=== PATIENT | male | born 1965 | race Two or more races ===

== ENCOUNTER 2018-11-09 15:00 | Emergency (ER) | payer SELFPAY ==
[~2018-11-09] VITALS: Ht 177.8 cm; Wt 59.0 kg
--- NOTE | 2018-11-09 15:17 | NUR ---
PT TO ROOM AT THIS TIME
--- NOTE | 2018-11-09 15:29 | NUR ---
53 Y/O MALE PRESENTS TO ED WITH C/O GROWTH ON RIGHT TESTICLE. PER PT "I WAS CHECKING MYSELF AND NOTICED A GROWTH ON MY RIGHT TESTICLE. I TRIED TO SQUEEZE IT AND EVER SINCE THEN IT HAS BEEN PAINFUL." NO ACUTE DISTRESS NOTED. NO C/O TRAUMA, DYSURIA OR COMPLICATIONS WITH URINATION. NO C/O N/V/D, SYNCOPE, CP, SOB. PT PLACED ON CONT PULSE OX,NIBP.
--- NOTE | 2018-11-09 15:40 | NUR ---
pt being taken to imaging.
--- NOTE | 2018-11-09 15:51 | NUR ---
PT BACK FROM IMAGING.
--- NOTE | 2018-11-09 15:56 | NUR ---
pt ambulatory with steady gait to bathroom.
--- NOTE | 2018-11-09 16:07 | NUR ---
PT PROVIDED UA. PT REATTACHED TO ALL MONITORS. NO ACUTE DISTRESS NOTED. NO NEEDS REQUESTED AT THIS TIME.
[2018-11-09 16:15] LABS: MICROSCOPIC NOT IND
[2018-11-09 16:23] LABS: CULTURE INDICATED? NO
[2018-11-09 16:55] VITALS: BP 118/80
--- NOTE | 2018-11-09 16:55 | NUR ---
PT RESTING ON GURNEY. NO ACUTE DISTRESS NOTED. NO NEEDS REQUESTED AT THIS TIME. VSS.
--- NOTE | 2018-11-09 17:50 | NUR ---
Patient/Caregiver given discharge instructions and they have confirmed that they understand the instructions. Patient ambulatory with steady gait. PT LEFT WITH ALL PERSONAL BELONGINGS.
== END 2018-11-09 17:51 | disposition home or self-care (01) ==
LOC: ED 16:15
DX: N43.2 Other hydrocele (principal); Z87.891 Personal history of nicotine dependence
CPT/HCPCS: 76870; 81003; 99284